=== PATIENT | female | born 1975 | race American Indian/Alaskan Native ===

== ENCOUNTER 2019-03-03 03:06 | Emergency (ER) | payer OTHER ==
[2019-03-03] MEDS ORDERED: NACL 0.9% 1000 ML 1,000 ML IV ONE (04:36)
[2019-03-03 05:05] LABS: Basophils % (Auto) 0.2 % (0.0-1.8); Hematocrit 37.1 % (30.3-42.9); Hemoglobin 11.9 gm/dl (10.1-14.3); Lymphocytes # (Auto) 0.5 K/mm3 (1.2-5.4); Lymphocytes % (Auto) 3.6 % (13.4-35.0); Mean Corpuscular HGB Conc 32 % (30-34); Mean Corpuscular Volume 81 fl (79-97); Monocytes % (Auto) 6.8 % (0.0-7.3); Platelet Count 323 K/mm3 (140-440); Red Blood Count 4.58 M/mm3 (3.65-5.03); Red Cell Distribution Width 14.4 % (13.2-15.2)
[2019-03-03 05:51] LABS: BUN/Creatinine Ratio 20; Blood Urea Nitrogen 12 mg/dL (7-17); Calcium 8.9 mg/dL (8.4-10.2); Hemolysis Index 25
--- NOTE | 2019-03-03 06:36 | Emergency Department Report ---
HPI - General Chief Complaint: Skin/Abscess/Foreign Body Time Seen by Provider: 03/03/19 06:10 - HPI HPI: 43-year-old female presents to the emergency department with complaint of a one-week history of progressively worsening abscess to her buttocks. She has a history of nzk-bzuribb-summnxmno diabetes, hypertension and depression. She has not taken anything for her symptoms prior to presentation. The patient says she is compliant with her medications. Her primary care physician is Dr. Manan Yan. No fever. There has been no drainage from the abscess. She says it has just become larger and red and painful. ED Past Medical Hx - Past Medical History Previous Medical History?: Yes Hx Hypertension: Yes Hx Diabetes: Yes Hx Psychiatric Treatment: Yes (depression) - Surgical History Past Surgical History?: Yes Hx Cholecystectomy: Yes - Social History Smoking Status: Never Smoker Substance Use Type: None - Medications Home Medications: Home Medications Medication Instructions Recorded Confirmed Last Taken Type Sulfamethoxazole/Trimethoprim 1 each PO BID #14 tablet 03/03/19 Unknown Rx [Bactrim DS TAB] ED Review of Systems ROS: Stated complaint: WEAKNESS, DIZZINESS Other details as noted in HPI Comment: All other systems reviewed and negative Constitutional: denies: chills, fever Gastrointestinal: denies: abdominal pain, vomiting Genitourinary: denies: dysuria, discharge Musculoskeletal: denies: back pain, arthralgia Skin: lesions. denies: pruritus Neurological: denies: headache, weakness Physical Exam - Physical Exam Vital Signs: Vital Signs 03/03/19 03/03/19 03:11 05:05 Temperature 99.2 F 98.7 F Pulse Rate 104 H Respiratory 18 17 Rate Blood Pressure 126/78 Blood Pressure 129/83 [Left] O2 Sat by Pulse 99 98 Oximetry Physical Exam: GENERAL: The patient is well-developed well-nourished. HENT: Normocephalic. Atraumatic. Patient has moist mucous membranes. EYES: Extraocular motions are intact. NECK: Supple. Trachea is midline. CHEST/LUNGS: Clear to auscultation. There is no respiratory distress noted. HEART/CARDIOVASCULAR: Regular. There is no tachycardia. There is no murmur. ABDOMEN: Abdomen is soft, nontender. Patient has normal bowel sounds. Obese habitus. SKIN: There is a moderate to large sized abscess to the medial left buttock within the gluteal cleft. It is about 4-5 inches in diameter superficially. It is warm and fluctuant. There is some mild surrounding erythema. NEURO: The patient is awake, alert, and oriented. The patient is cooperative. Normal speech. MUSCULOSKELETAL: There is some tenderness to palpation to the left buttock where the patient has an abscess. There is no limitation range of motion. There is no evidence of acute injury. ED Course Vital Signs 03/03/19 03/03/19 03:11 05:05 Temperature 99.2 F 98.7 F Pulse Rate 104 H Respiratory 18 17 Rate Blood Pressure 126/78 Blood Pressure 129/83 [Left] O2 Sat by Pulse 99 98 Oximetry - I & D Left Buttocks Type of Procedure: Simple Site: Left buttock Blade Size: 11 I & D Procedure: betadine prep, sterile drapes applied, sterile dressing applied, gauze wick placed Progress: The left buttock abscess was cleaned with iodine solution. About 3 mL of 1% lidocaine without epinephrine was injected into the abscess. After this, a 1.5 cm incision was made with an 11 blade scalpel. There was a release of about 20 mL of malodorous purulence. After this, the area was packed with iodoform gauze and the patient was cleaned up and covered with sterile gauze. ED Medical Decision Making - Lab Data Result diagrams: 03/03/19 04:45 03/03/19 04:45 - Medical Decision Making Patient presents with a moderate to large sized left gluteal abscess. Vital signs stable including being afebrile. Labs were mostly unremarkable. There is a mild leukocytosis of 14,000 but no left shift. Patient has some hyperglycemia but does not appear to have diabetic ketoacidosis. Patient does not appear to have any systemic infection at this time. An incision and drainage was performed to this gluteal abscess and there was a release of about 20 mL's of malodorous purulence. There is some mild erythema. She was given a dose of IV antibiotics here. The abscess was packed with iodoform gauze. Patient is having some improvement in her discomfort already. She has been instructed to follow up with a primary care physician or back in the emergency Department in 2 days for removal of packing and a wound check. It is possible she may need to have the wound repacked. She also knows to return to the emergency department sooner with any worsening of her symptoms or if any acute distress. - Differential Diagnosis abscess, cellulitis, dermatitis, pilonidal cyst Critical Care Time: No Critical care attestation.: If time is entered above; I have spent that time in minutes in the direct care of this critically ill patient, excluding procedure time. ED Disposition Clinical Impression: Left buttock abscess, Hyperglycemia Disposition: TO HOME OR SELFCARE Is pt being admited?: No Condition: Stable Instructions: Abscess Incision and Drainage (ED), Abscess (ED), Diabetic Hyperglycemia (ED) Additional Instructions: Please follow-up with your primary care physician in the next few days. You'll need to have a healthcare provider take a look at the abscess, remove the packing, and evaluate the abscess/wound in 2 days. Make sure you get to the emergency department or see someone sooner with any signs or symptoms of systemic infection such as increased pain, increased swelling, surrounding redness, development of fever. Take the antibiotics as prescribed. Prescriptions: Sulfamethoxazole/Trimethoprim [Bactrim DS TAB] 1 each PO BID #14 tablet Referrals: PCP, Your [Other] - 2-3 Days Forms: Work/School Release Form(ED) Time of Disposition: 09:00
[2019-03-03] MEDS ORDERED: CLEOCIN 900 MG/50 mL 900 MG/50 ML BAG IV ONE (06:57)
[2019-03-03] MEDS ORDERED: XYLOCAINE 1% 20 mL ONE (07:30)
[2019-03-03] MEDS ORDERED: XYLOCAINE 1% MPF 5 mL INFILTRATI ONE (07:45)
[2019-03-03 08:12] VITALS: BP 141/81
== END 2019-03-03 09:40 | disposition home or self-care (01) ==
LOC: ED 03:06
DX: L02.31 Cutaneous abscess of buttock (principal); E11.65 Type 2 diabetes mellitus with hyperglycemia; I10 Essential (primary) hypertension; F32.9 Major depressive disorder, single episode, unspecified; Z79.899 Other long term (current) drug therapy; Z88.6 Allergy status to analgesic agent; Z88.8 Allergy status to other drugs, medicaments and biological substances
CPT/HCPCS: 10061; 36415; 80048; 82805; 82962; 85025; 87040; 96361; 96365; 99284; J7030

== ENCOUNTER 2019-05-07 12:45 | Outpatient (CLI) | payer OTHER ==
--- NOTE | 2019-05-07 15:52 | Mammography Report ---
STEREOTACTIC NEEDLE BIOPSY WITH CLIP PLACEMENT RIGHT BREAST INDICATION: BREAST MICROCALCIFICATIONS R92.0. COMPARISON: Recent [facility] mammogram. FINDINGS: The patient was placed prone on the stereotactic biopsy table. A timeout was called. Using stereotact ic guidance, sterile technique and 1% lidocaine for skin anesthesia and 2% lidocaine with epinephrine for deep anesthesia, 8 gauge mammotome vacuum-assisted biopsy was performed from a lateral approach. Samples were obtained around the clock face and field representatives director calcifications were identified on a s pecimen radiograph. A localizer clip was placed at the biopsy site and the probe was removed. Hemosta sis was achieved with pressure to the site. A sterile dressing and an Naren bandage wrap was applied. A post procedure mammogram demonstrated removal of at least some of the calcifications and concordant location of the biopsy clip. The patient tolerated the procedure well and there were no apparent comp lications. She left the department in good condition with a cold pack applied to the biopsy site and she was given instructions for wound care and follow-up. IMPRESSION: 1. Successful uncomplicated stereotactic biopsy with clip placement right breast. Signer Name: Thong Rutherford MD Signed: 05/07/2019 3:47 PM Workstation Name: [id number]
--- NOTE | 2019-05-08 16:23 | Mammography Report ---
RIGHT DIGITAL DIAGNOSTIC MAMMOGRAM CLINICAL: For clip placement after stereotactic biopsy. COMPARISON: Recent outside mammogram. FINDINGS: At least some of the calcifications have been removed and a second biopsy clip is located a djacent to the group of sampled calcifications in the outer breast. IMPRESSION: Concordant clip deployment. Signer Name: Thong Rutherford MD Signed: 05/08/2019 4:19 PM Workstation Name: [id number]
== END 2019-05-07 12:46 | disposition home or self-care (01) ==
LOC: SPVWC 12:45
PROVIDERS: ATTEND Surgery
DX: R92.0 Mammographic microcalcification found on diagnostic imaging of breast (principal); N64.89 Other specified disorders of breast; I10 Essential (primary) hypertension; F32.9 Major depressive disorder, single episode, unspecified; Z79.899 Other long term (current) drug therapy; Z88.5 Allergy status to narcotic agent; Z90.49 Acquired absence of other specified parts of digestive tract; Z88.8 Allergy status to other drugs, medicaments and biological substances
CPT/HCPCS: 19081; 77065; 88305; A4648